=== PATIENT | female | born 1995 | race Caucasian/White ===

== ENCOUNTER 2018-01-12 05:39 | Inpatient (IN) | payer BC ==
[2018-01-12 06:10] VITALS: BMI 26.1
[2018-01-12] MEDS ORDERED: Carboprost 250 MCG/ML AMP IM PRN (06:31)
[2018-01-12] MEDS ORDERED: Lactated Ringer's 1,000 ML IV SCH ×2 (06:31)
[2018-01-12] MEDS ORDERED: Lidocaine 1% (PF) 30 ML VIAL SC PRN (06:31)
[2018-01-12] MEDS ORDERED: Promethazine HCl 25 MG/ML VIAL IM PRN (06:31)
[2018-01-12] MEDS ORDERED: Diphenoxylate HCl/Atropine Tablet PO PRN (06:31)
[2018-01-12] MEDS ORDERED: Ondansetron HCl/PF 4 MG/2 ML Vial IVP PRN (06:31)
[2018-01-12] MEDS ORDERED: Zolpidem Tartrate 5 MG TAB PO PRN (06:31)
[2018-01-12] MEDS ORDERED: Ibuprofen 800 MG TAB PO PRN (06:31)
[2018-01-12] MEDS ORDERED: HYDROcodone/Acetaminophen 5/325 mg Tablet PO PRN ×3 (06:31→12:11)
[2018-01-12 06:53] LABS: Hemoglobin 13.5 g/dL (12.0-16.0); Mean Corpuscular Hemoglobin 32.4 pg (27.0-31.0); Mean Corpuscular Volume 92.4 fl (81.0-99.0); Mean Platelet Volume 7.7 fL (7.4-10.4); Platelet Count 190 thou/uL (130-400); RBC Distribution Width 12.1 % (11.5-14.5); Red Blood Cell (RBC) Count 4.17 mill/uL (4.20-5.40); White Blood Cell (WBC) Count 8.8 thou/uL (4.8-10.8)
[2018-01-12 07:11] LABS: HBSAg Index 0.22 S/CO (0-0.99); Hep B Surf Ag Non-Reactive S/CO (NonReactive); Syphilis Antibody Nonreactive (Nonreactive); Syphilis Antibody Index 0.04 S/CO (<1.00 Non-Reactive)
[2018-01-12] MEDS: LR / Pitocin 40 units/1000 ml 1,000 ML IV PRN ×2 (09:28→10:35)
[2018-01-12] MEDS ORDERED: Preparation H Ointment 28 GM TUBE PR PRN (12:11)
[2018-01-12] MEDS ORDERED: Benzocaine/Menthol 20-0.5% 60 ML CAN TOP PRN (12:11)
[2018-01-12] MEDS ORDERED: Bisacodyl 10 MG SUPP PR PRN (12:11)
[2018-01-12] MEDS ORDERED: LR / Pitocin 40 units/1000 ml 1,000 ML IV SCH (12:11)
[2018-01-12] MEDS ORDERED: Lanolin Ointment 7 GM TUBE TOP PRN (12:11)
[2018-01-12] MEDS ORDERED: Adacel (T-DAP) 0.5 ML VIAL IM ONE (12:11)
[2018-01-12] MEDS ORDERED: Milk Of Magnesia 30 ML UDCUP PO PRN (12:11)
[2018-01-12] MEDS ORDERED: traMADol HCl 50 MG TAB PO PRN (12:11)
[2018-01-12] MEDS ORDERED: Docusate Calcium (SURFAK) 240 MG CAP PO SCH (12:30)
[2018-01-12] MEDS ORDERED: Ferrous Sulfate 325 MG TAB PO SCH (12:30)
[2018-01-12] MEDS: Ibuprofen 800 MG TAB PO SCH ×2 (14:01→21:45)
[2018-01-12] MEDS: Ferrous Sulfate 325 MG TAB PO SCH (17:35)
[2018-01-12] MEDS: Docusate Calcium (SURFAK) 240 MG CAP PO SCH (21:45)
[2018-01-13] MEDS: Ibuprofen 800 MG TAB PO SCH (05:43)
[2018-01-13 07:44] VITALS: BP 120/78; TEMP 98
[2018-01-13] MEDS: Docusate Calcium (SURFAK) 240 MG CAP PO SCH (09:37)
[2018-01-13] MEDS: Ferrous Sulfate 325 MG TAB PO SCH (09:38)
== END 2018-01-13 12:20 | disposition home or self-care (01) | DRG 775 ==
LOC: L&D/OP 05:39 → L&D 06:30 → 3SW 11:59
PROVIDERS: ADMIT Obstetrics & Gynecology; ATTEND Family Medicine
PROC: 10E0XZZ Delivery of Products of Conception, External Approach (ICD-10-PCS; principal; 2018-01-12)
DX: O99.12 Other diseases of the blood and blood-forming organs and certain disorders involving the immune mechanism complicating childbirth (principal); D68.51 Activated protein C resistance; Z37.0 Single live birth; Z3A.40 40 weeks gestation of pregnancy; Z79.82 Long term (current) use of aspirin
CPT/HCPCS: 85027; 86780; 87340; 90715; 99285; J0595; J2001